=== PATIENT | female | born 1990 | race Two or more races ===

== ENCOUNTER 2017-03-29 12:46 | Emergency (ER) | payer OTHER ==
[~2017-03-29] VITALS: Ht 167.6 cm; Wt 90.0 kg
[2017-03-29] MEDS ORDERED: HYDROmorphone 1 MG/ML, 1ML ONE (13:25)
[2017-03-29] MEDS ORDERED: ONDANSETRON ODT 4 MG ONE (13:25)
[2017-03-29] MEDS ORDERED: HYDROmorphone 1 MG/ML, 1ML IM PRN (13:30)
[2017-03-29] MEDS ORDERED: ONDANSETRON ODT 4 MG PO ONE (13:30)
[2017-03-29 15:37] VITALS: BP 126/87
== END 2017-03-29 15:39 | disposition home or self-care (01) ==
LOC: ED 15:18
DX: S20.211A Contusion of right front wall of thorax, initial encounter (principal); R51 Headache; M54.2 Cervicalgia; V49.49XA Driver injured in collision with other motor vehicles in traffic accident, initial encounter; Y93.89 Activity, other specified; Y92.410 Unspecified street and highway as the place of occurrence of the external cause; Y99.9 Unspecified external cause status
CPT/HCPCS: 70450; 71010; 72020; 72050; 96372; 99284; J1170; Q0162